=== PATIENT | male | born 1975 | race Caucasian/White ===

== ENCOUNTER 2024-04-29 08:00 | Emergency (ER) | payer OTHER, SELFPAY ==
--- OUTSIDE RECORDS SUMMARY | 2024-04-29 08:55 | XMS_ITS | Continuity of Care Document ---
Author Organization [facility] [facility] Address [address] [place] [address]- Care Team Providers Care Laborer [employer] Name Role Phone Miguel CROW, Jj Primary Care Physician [id number] Date(s): 04/07/24 - 04/14/24 [facility] [address] [address]- Encounter Diagnosis Constipation(Discharge Diagnosis) - 04/07/24 Attending Physician: Lauren Frank NP Encounter Type: Office Visit Allergies, Adverse Reactions, Alerts No Known Allergies Immunizations Given and Recorded Vaccine Date Status Refusal Reason tetanus/diphtheria/pertussis, acel(Tdap) 1 11/11/23 Given SARS-CoV-2(COVID-19)mRNA-LNP vac(lip534) 01/01/23 Recorded influenza virus vaccine, inactivated 12/28/22 Shawn rded influenza virus vaccine, inactivated 01/22/22 Shawn rded influenza virus vaccine, inactivated 01/12/19 Shawn rded SARS-CoV-2 (COVID-19) mRNA-1273 vaccine 04/13/20 R ecorded SARS-CoV-2 (COVID-19) mRNA-1273 vaccine 03/16/20 R ecorded 1Result Comment: [facility] [id number] Medications levETIRAcetam 1000 mg oral tablet 1 tablet = 1,000 mg, By Mouth, 2 times a day, # 60 tablet, 9 Refills, Maintenance, 01/06/24 4:03:00PM EDT, Tablet, [facility]/pharmacy #[id number], Partial fill upon patient request if the prescription is for a schedule II opioid drug., 158, cm, 01/06/24 15:37:00 EDT, Height, 75, kg, 01/06/24 15:37:00 EDT, DryWeight Start Date: 01/06/24 Stop Date: 11/01/24 Status: Ordered Quantity: 60.0 Unit: tablet Repeat number: 10 metoprolol 50 mg oral tablet, extended release 50 mg, 1, tablet, By Mouth, Daily, # 90 tablet, Refills 3, Tot. Refills 3, Maintenance, 12/24/23 12:32:00 PM EDT, Route to Pharmacy Electronically, [facility]/pharmacy #[id number], Partial fill upon patient request if the prescription is for a schedule II opioid drug., 158, cm, 11/11/23 13:36:00 EDT, Height, 79.5, kg, 09/19/23 0:16:00 EDT, Dry Weight Start Date: 12/24/23 Status: Ordered Quantity: 90.0 Unit: tablet Repeat number: 4 rosuvastatin 10 mg oral tablet 1 tablet = 10 mg, By Mouth, Daily, # 90 tablet, 1 Refills, Maintenance, 11/14/23 9:10:00 AM EDT, Tablet, [facility]/pharmacy #[id number], Partial fill upon patient request if the prescription is for a schedule II opioid drug., 158, cm, 11/11/23 13:36:00 EDT, Height, 79.5, kg, 09/19/23 0:16:00 EDT, Dry Weight Start Date: 11/14/23 Status: Ordered Quantity: 90.0 Unit: tablet Repeat number: 2 Problem List Condition Confirmation Course Effective Dates Status H ealth Status Informant Congenital obstructive hydrocephalus Confirmed Active Hypertension Confirmed Active Seizure disorder Confirmed Active Diagnosis Diagnosis Type Effective Dates Health Status inical Service Informant Constipation Discharge Diagnosis 04/07/24 Vital Signs Most recent to oldest [Reference Range]: 1 Height 158 cm (04/07/24 2:34 PM) Weight 72.5 kg (04/07/24 2:34 PM) Oxygen Saturation [94-100 %] 98 % (04/07/24 2:34 PM) Pulse Rate [55-90 bpm] 65 bpm (04/07/24 2:34 PM) Body Mass Index [18.5-24.99 kg/m2] 29.04 kg/m2 *H* (04/07/24 2:34 PM) Blood Pressure [90-138/55-84 mm Hg] 120/ 70mm Hg (04/07/24 2:34 PM) Respiratory Rate [16-30 br/min] 15 br/mi n *L* (04/07/24 2:34 PM) Mode of Delivery (Oxygen) Room air (04/07/24 2:34 PM) Blood pressure sites Arm, right (04/07/24 2:34 PM) Dry Weight 72.5 kg (04/07/24 2:34 PM) Weight Obtained Via Standing scale (04/07/24 2:34 PM) Dry Weight Obtained Via Standing scale (04/07/24 2:34 PM) Social History Social History Type Response Smoking Status Never (less than 100 in lifetime) entered on: 04/18/21 Sex Sex Representation Male (finding) Note * Shanika Valles: PERFORM Event Display: Patient Education/Instruction Authored Date: [id number] Ambulatory Adult [facility] [address] [address] Name: RUSTAM STARKS : 1975?? Visit: 04/07/2024 14:15?? Ambulatory Visit Instructions ?? Your Care Team Primary Care Provider Jj Rivera NP? This Visit Provider Lauren Frank NP Your Diagnosis Constipation Vitals Signs Pulse Rate: 65 bpm Height: 158 cm Respiratory Rate:??15 br/min??Low Weight: 72.5 kg Systolic Blood Pressure: 120 mm Hg Body Mass Index:??29.04 kg/m2??High Diastolic Blood Pressure: 70 mm Hg Body surface area: 1.78 Oxygen Saturation: 98 % ?? Medications The list below reflects the information in our records and provided by you today along with any changes made during this visit. Please continue your medications until treatment is completed or stopped by your provider. If this is different from the information you have or there are other questions,please contact the prescribing provider. What How Much When Instructions Unchanged levETIRAcetam (levETIRAcetam 1000 mg oral tablet) 1 tab(s) Oral Twice a day Duration: 30 Days Unchanged Metoprolol (metoprolol 50 mg oral tablet, extended release) 1 tab(s) Oral Daily Unchanged Rosuvastatin (rosuvastatin 10 mg oral tablet) 1 tab(s) Oral Daily Medications and Immunizations Administered Medications Given During Visit No medications given during this visit.?? Allergies (NKA means No Known Allergies) NKA Education Materials Below is the list of Educational Leaflet Providered with your Visit summary. WebMD Ignite Patient Education - Treating Constipation?? WebMD Ignite Patient Education - Constipation (Adult)?? Common Emergency Awareness Tips IS IT A STROKE? Act FAST and Check for these signs: FACE Does the face look uneven? ARM Does one arm drift down? SPEECH Does their speech sound strange? TIME Call at any sign of stroke ?? Heart Attack Signs Chest discomfort: Most heart attacks involve discomfort in the center of the chest and lasts more than a few minutes, or goes away and comes back. It can feel like uncomfortable pressure, squeezing, fullness or pain. Discomfort in upper body: Symptoms can include pain or discomfort in one or both arms, back, neck, jaw or stomach. Shortness of breath: With or without discomfort. Other signs: Breaking out in a cold sweat, nausea, or lightheaded. Remember, MINUTES DO MATTER. If you experience any of these heart attack warning signs, call to get immediate medical attention! ?? Smoking can increase your chances of developing chronic health problems and can cause harmful effects to other family members in your house. If you smoke, you are strongly encouraged to quit. Please call [employer] Link at [phone] or 1-689-237[employer] (0788) or log in to [email or web address] for referrals to smoking cessation programs. ?? The National Suicide Prevention Hotline is available 30/09 if you or someone you know needs to find a reason to keep living. By calling 1-484-941-[employer] (6992) you'll be connected to a skilled, trained counselor at a crisis center in your area. [facility] Break [employer] Portal You can view and manage your care through the patient portal or by using a health care milagros of your choosing. [employer] is a website that allows you to securely view your medical information including your hospital discharge summary, office visit summaries, medications and follow-up visits. You can also request appointments, renew medications, and request access to your medical information using a health care milagros of your choosing, or just ask a question. You can enroll at [email or web address] or register during your next office visit. [facility], in keeping with [facility] guidance, no longer requires face masks for staff, patientsor visitors in most situations. Similiar to time spent indoors at other locations, there is the chance that you were exposed to repiratory viruses during your time with us (such as flu or COVID-19). If you develop symptoms concerning for a viral respiratory infection, please seek testing (and treatment if indicated) from your medical provider or home test kit. ?? Disclaimer: The information provided is of a general nature and is intended to be used in conjunction with the recommendations and advice of your health care practitioner. Every effort has been made to ensure that the information provided is accurate and complete at the time it is provided to you however, as your needs change, or, as new information becomes available, different or additional instructions may be required. ?? If you have questions, please consult with your primary care provider or pharmacist, as appropriate. This information is not intended to serve as substitution for assessment and evaluation by a qualified health care provider. If you do not have a primary care provider, you may find a [facility] provider by calling [facility] [employer] Link at [phone]. * Shanika Valles: PERFORM Event Display: Patient Education/Instruction Authored Date: [id number] Ambulatory Adult Visit Summary [facility] [place] Adult Med [facility] [place] Adult Medicine [address] [address] Name: RUSTAM STARKS : 1975?? Visit: 04/07/2024 14:15?? Ambulatory Visit Instructions ?? Your Care Team Primary Care Provider Jj Rivera NP? This Visit Provider Monika CROW , Lauren oLpez. Your Diagnosis Constipation Vitals Signs Pulse Rate: 65 bpm Height: 158 cm Respiratory Rate:??15 br/min??Low Weight: 72.5 kg Systolic Blood Pressure: 120 mm Hg Body Mass Index:??29.04 kg/m2??High Diastolic Blood Pressure: 70 mm Hg Body surface area: 1.78 Oxygen Saturation: 98 % ?? Medications The list below reflects the information in our records and provided by you today along with any changes made during this visit. Please continue your medications until treatment is completed or stopped by your provider. If this is different from the information you have or there are other questions,please contact the prescribing provider. What How Much When Instructions Unchanged levETIRAcetam (levETIRAcetam 1000 mg oral tablet) 1 tab(s) Oral Twice a day Duration: 30 Days Unchanged Metoprolol (metoprolol 50 mg oral tablet, extended release) 1 tab(s) Oral Daily Unchanged Rosuvastatin (rosuvastatin 10 mg oral tablet) 1 tab(s) Oral Daily Medications and Immunizations Administered Medications Given During Visit No medications given during this visit.?? Allergies (NKA means No Known Allergies) NKA Education Materials Below is the list of Educational Leaflet Providered with your Visit summary. WebMD Ignite Patient Education - Treating Constipation?? WebMD Ignite Patient Education - Constipation (Adult)?? Common Emergency Awareness Tips IS IT A STROKE? Act FAST and Check for these signs: FACE Does the face look uneven? ARM Does one arm drift down? SPEECH Does their speech sound strange? TIME Call at any sign of stroke ?? Heart Attack Signs Chest discomfort: Most heart attacks involve discomfort in the center of the chest and lasts more than a few minutes, or goes away and comes back. It can feel like uncomfortable pressure, squeezing, fullness or pain. Discomfort in upper body: Symptoms can include pain or discomfort in one or both arms, back, neck, jaw or stomach. Shortness of breath: With or without discomfort. Other signs: Breaking out in a cold sweat, nausea, or lightheaded. Remember, MINUTES DO MATTER. If you experience any of these heart attack warning signs, call to get immediate medical attention! ?? Smoking can increase your chances of developing chronic health problems and can cause harmful effects to other family members in your house. If you smoke, you are strongly encouraged to quit. Please call [employer] Link at [phone] or 1-212-879[employer] (2682) or log in to [email or web address] for referrals to smoking cessation programs. ?? The National Suicide Prevention Hotline is available 30/09 if you or someone you know needs to find a reason to keep living. By calling 1-253-204-[employer] (0711) you'll be connected to a skilled, trained counselor at a crisis center in your area. [facility] Break [employer] Portal You can view and manage your care through the patient portal or by using a health care milagros of your choosing. [employer] is a website that allows you to securely view your medical information including your hospital discharge summary, office visit summaries, medications and follow-up visits. You can also request appointments, renew medications, and request access to your medical information using a health care milagros of your choosing, or just ask a question. You can enroll at [email or web address] or register during your next office visit. [facility], in keeping with [facility] guidance, no longer requires face masks for staff, patientsor visitors in most situations. Similiar to time spent indoors at other locations, there is the chance that you were exposed to repiratory viruses during your time with us (such as flu or COVID-19). If you develop symptoms concerning for a viral respiratory infection, please seek testing (and treatment if indicated) from your medical provider or home test kit. ?? Disclaimer: The information provided is of a general nature and is intended to be used in conjunction with the recommendations and advice of your health care practitioner. Every effort has been made to ensure that the information provided is accurate and complete at the time it is provided to you however, as your needs change, or, as new information becomes available, different or additional instructions may be required. ?? If you have questions, please consult with your primary care provider or pharmacist, as appropriate. This information is not intended to serve as substitution for assessment and evaluation by a qualified health care provider. If you do not have a primary care provider, you may find a [facility] provider by calling [employer] [facility] at [phone]. * Monika CROW, Lauren M: PERFORM Event Display: Patient Education Leaflets Authored Date: Treating Constipation ?? 49210 Treating Constipation Constipation is a common and often uncomfortable problem. Constipation means you have bowel movements??fewer than 3 times per week. Or that you strain to pass hard, dry stool. It can last a short time. Or it can be a problem that never seems to go away. The good news is that it can often be treatedand controlled. Eat more fiber One of the best ways to help treat constipation is to increase your fiber intake. You can do this either through diet or by using fiber supplements. Fiber (in whole grains, fruits, and vegetables) adds bulk and absorbs water to soften the stool. This helps the stool pass through the colon more easily. When you increase your fiber intake, do it slowly to prevent side effects such as bloating. Alsoincrease the amount of water that you drink. Eating more of these foods can add fiber to your diet:??? High-fiber cereals ??? Whole grains, bran, and brown rice ??? Vegetables such as carrots, broccoli, and greens ??? Fresh fruits (especially apples, pears, and dried fruits such as raisins and apricots) ??? Nuts and legumes (especially beans such as lentils, kidney beans, and corbin beans) ?? Set a good routine ? Go to the bathroom when you feel you need to. Don???t ignore the urge to have a bowel movement.??? Set aside time after meals to go to the bathroom. ? Get physically active Exercise helps improve the working of your colon which helps ease constipation. Try to get some physical??activity every day. If you haven???t been active for a while, talk with your??healthcare provider??before starting again. ?? Consider other choices ??? Laxatives. Your healthcare provider may suggest an kibu-duy-yqggclt product to help ease your constipation. They may suggest using bulk-forming products or laxatives. Laxatives are common and safe if used as directed. Follow directions carefully when using them. See your provider for new constipation or long-term constipation. This is??to rule out other causes such as certain medicines or other health conditions. See your provider if you have rectal bleeding. ??? Pelvic floor training. Biofeedback and pelvic physical therapy (PT) may be helpful. They can help if youhave pelvic floor problems that may be lead to constipation. For biofeedback, the healthcare provider puts sensors in and outside your anus. This helps you learn how to find and relax the muscles during a bowel movement so you don't get constipated. With PT, you'll learn exercises to help have normal bowel movements and prevent constipation. You may be taught different positions to use to keep from straining during a bowel movement. ?? Last Reviewed Date: 2021 ?? [employer]. All rights reserved. This information is not intended as a substitute for professional medical care. Always follow your healthcare professional's instructions. ?? * Monika CROW, Lauren M: PERFORM Event Display: Patient Education Leaflets Authored Date: [id number] Constipation (Adult) ?? [id number] Constipation (Adult) Constipation means that you have bowel movements that are less frequent than usual. Stools often become very hard and difficult to pass. Constipation is very common. At some point in life, it affects almost everyone. Since everyone's bowel habits are different, what is constipation to one person may not be to another. Your healthcare provider may do tests to diagnose constipation. It depends on what??they??find when evaluating you. Symptoms of constipation include: ??? Abdominal pain ??? Bloating ??? Vomiting ??? Painful bowel movements ??? Itching, swelling, bleeding, or pain around the anus Causes Constipation can have many causes. These include: ??? Diet low in fiber ??? Too much dairy ??? Not drinking enough liquids ??? Lack of exercise or physical activity (especially true for older adults)??? Changes in lifestyle or daily routine, including , aging, work, and travel ??? Frequent use or misuse of laxatives ??? Ignoring the urge to have a bowel movement or delaying it until later ??? Medicines, such as certain prescription pain medicines, iron supplements, antacids, certain antidepressants, and calcium supplements ??? Diseases like irritable bowel syndrome, bowel obstructions, stroke, diabetes, thyroid disease, Parkinson disease, hemorrhoids, and colon cancer ?? Complications Possible complications of constipation can include: ??? Hemorrhoids ??? Rectal bleeding from hemorrhoids or anal fissures??(skin tears) ??? Hernias ??? Chronic constipation ??? Fecal impaction, a severe form of constipation in which a large amount of hard stool is in your rectum that you can't pass??? Bowel obstruction or perforation ?? Home care All treatment should be done after talking with your healthcare provider. This is especially true if you have another medical problem, are taking prescription medicines, or are an older adult. Treatment most often involves lifestyle changes. You may also need medicines. Your healthcare provider will tell you which will work best for you. Follow the advice below to help avoid this problem in the future. ?? Lifestyle changes These lifestyle changes can help prevent constipation: ??? Diet. Eat a high- fiber diet, with fresh fruit and vegetables, and reduce dairy intake, meats, and processed foods ??? Fluids. It's importantto get enough fluids each day. Drink plenty of water when you eat more fiber. If you are on diet that limits the amount of fluid you can have, talk about this with your healthcare provider. ??? Regular exercise. Check with your healthcare provider first. ?? Medicines Take any medicines as directed. Some laxatives are safe to use only every now and then. Others can be taken on a regular basis. While laxatives don't cause bowel dependence, they are treating the symptoms. So your constipation may return if you don't make other changes. Talk with your healthcare provider or pharmacist if you have questions. Prescription pain medicines can cause constipation. If you are taking this kind of medicine, ask your healthcare provider if you should also take a stool softener. Medicines you may take to treat constipation include: ??? Fiber supplements ??? Stool softeners ???Laxatives ??? Enemas ??? Rectal suppositories ?? Follow-up care Follow up with your healthcare provider if symptoms don't get better in the next few days. You may need to have more tests or see a specialist. ?? Call 911 Call 911 if any of these occur: ??? Trouble breathing ??? Stiff, rigid abdomen that is severely painful to touch ??? Large amount of blood in the stool ??? Confusion ??? Fainting or loss of consciousness ??? Rapid heart rate ??? Chest pain ?? When to seek medical advice Call your healthcare provider right away if any of these occur: ??? Fever of 100.4??F (38??C) or higher, or as directed by your healthcare provider ??? Failure to resume normal bowel movements ??? Pain in your abdomen or back gets worse ??? Nausea or vomiting ??? Swelling in your abdomen ??? Small amount of blood in the stool ??? Black, tarry stool ??? Involuntary weight loss ??? Weakness ?? Last Reviewed Date: 2021 ?? 3162-4991 [employer]. All rights reserved. This information is not intended as a substitute for professional medical care. Always follow your healthcare professional's instructions. ?? Patient Care team information Care Team Personnel Name: Jj Rivera NP Position: [facility] PCO Associate Professional Member Role: PCP Address: [address] [place] [address] Telecom: Care Team Related Persons Name: SHALONDA BARCENAS Name: JOHN CROOKS Name: RUSTAM STARKS Name: GINETTE STARKS Insurance Providers Guarantor name: RACHEL Health Plan Information #: 3 Payer[facility] Member Number: [id number] Policy Number: NA Group Number: RACHEL Health Plan Information #: 1 Payer: [employer] Member Number: [id number] Policy Number: NA Group Number: [id number] Health Plan Information #: 2 Payer: [employer] Member Number: [id number] Policy Number: RACHEL Group Number: [id number]
--- OUTSIDE RECORDS SUMMARY | 2024-04-29 08:55 | XMS_ITS | Continuity of Care Document ---
Author Organization [facility] al Address [address] [place] [address]- Care Team Providers Care Geophysics Professor Name Role Phone Miguel CROW, Jj Primary Care Physician Encounter [facility] Date(s): 04/26/24 - 04/26/[address] [address]- Discharge Disposition: A-D/C Home Attending Physician: Nicko Alegria MD Admitting Physician: Nicko Alegria MD Referring Physician: Not on Staff, Referring MD Encounter Type: Disch ES Allergies, Adverse Reactions, Alerts No Known Allergies Immunizations Given and Recorded Vaccine Date Status Refusal Reason tetanus/diphtheria/pertussis, acel(Tdap) 1 11/11/23 Given SARS-CoV-2(COVID-19)mRNA-LNP vac([id number]) 01/01/23 Recorded influenza virus vaccine, inactivated 12/28/22 Shawn rded influenza virus vaccine, inactivated 01/22/22 Shwan rded influenza virus vaccine, inactivated 01/12/19 Shawn rded SARS-CoV-2 (COVID-19) mRNA-1273 vaccine 04/13/20 R ecorded SARS-CoV-2 (COVID-19) mRNA-1273 vaccine 03/16/20 R ecorded 1Result Comment: [facility] [id number] Medications Dulcolax 5 mg oral enteric coated tablet 2 tablet = 10 mg, By Mouth, Daily, PRN for constipation, for 10 days, # 20 tablet, 0 Refills, Acute05/06/24 5:13:00 PM EST, 04/26/24 5:13:00 PM EST, EC Tablet, [id number], Partial fill upon patient request if the prescription is for a schedule II opioid drug., 158, cm, 04/26/24 14:19:00 EST, Height, 73.7, kg, 04/26/24 14:19:00 EST, Dry Weight Start Date: 04/26/24 Stop Date: 05/06/24 Status: Ordered Quantity: 20.0 Unit: tablet Repeat number: 1 lactulose 10 gm/15 ml oral syrup 15 mL = 10 Gm, By Mouth, Daily, PRN as needed for constipation, for 30 days, # 450 mL, 0 Refills, Acute 05/26/24 5:12:00 PM EDT, 04/26/24 5:12:00 PM EST, Syrup, [id number], Partial fill upon patient request if the prescription is for a schedule II opioid drug., 15 mL By Mouth Daily,x30 days,PRN:as needed for constipation, 158, cm, 04/26/24 14:19:00 EST, Height, 73.7, kg, 04/26/24 14:19:00 EST, Dry Weight Start Date: 04/26/24 Stop Date: 05/26/24 Status: Ordered Quantity: 450.0 Unit: mL Repeat number: 1 levETIRAcetam 1000 mg oral tablet 1 tablet = 1,000 mg, By Mouth, 2 times a day, # 60 tablet, 9 Refills, Maintenance, 01/06/24 4:03:00PM EDT, Tablet, [id number], Partial fill upon patient request if [...] 12:32:00 PM EDT, Route to Pharmacy Electronically, [id number], Partial fill upon patient request if [...] Refills, Maintenance, 11/14/23 9:10:00 AM EDT, Tablet, [id number], Partial fill upon patient request if [...] Hypertension Confirmed Active Seizure disorder Confirmed Active Results Radiology Reports * Exam Date Time Procedure Performing Provider Status 04/26/24 4:31 PM Abdomen Series W/ PA Chest Bradford Cagle; Auth (Verified) Notes: (Abdomen Series W/ PA Chest) Reason For Exam: Distention RESULT: Abdomen Series W/ PA Chest Abdomen Series W/ PA Chest INDICATION: Persistent mid abdominal pain. Clinical Question(s): Obstruction; Free Air. COMPARISON: None. FINDINGS: PA chest x-ray, 2 AP views of the abdomen, one labeled upright the other supine. LINES AND TUBES: Partially included PLATE SENSITIZER shunt catheter remains intact. LUNGS AND PLEURA: Clear lungs. Normal vascularity. No pleural effusion. No pneumothorax. HEART, MEDIASTINUM AND RUDY: Normal. BOWEL GAS PATTERN AND SOFT TISSUES: Normal bowel gas pattern. Colon is stool containing throughout. No pneumoperitoneum. No abnormal calcifications. BONES: Normal bones. IMPRESSION: No evidence of an acute abnormality. WSN: [id number] Ordering Physician: Nicko Alegria Dictated By: Marek Bailey MD Dictated Date/Time: 04/26/24 4:50 pm Reviewed By: Marek Bailey MD Signed By: Marek Bailey MD Signed Date/Time: 04/26/24 4:50 pm Transcribed By: MAYANK Transcribed Date/Time: 04/26/24 4:47 pm Vital Signs Most recent to oldest [Reference Range]: 1 2 3 Height 158 cm (04/26/24 5:40 PM) 158 cm (04/26/24 1:40 PM) Weight 73.7 kg (04/26/24 1:40 PM) Oxygen Saturation [94-100 %] 96 % (04/26/24 5:40 PM) 97 % (04/26/24 1:40 PM) 98 % (04/26/24 1:39 PM) Pulse Rate [55-90 bpm] 58 bpm (04/26/24 5:40 PM) 54 bpm *L* (04/26/24 1:40 PM) 76 bpm (04/26/24 1:39 PM) Blood Pressure [90-138/55-84 mm Hg] 136/100mm Hg (04/26/24 5:40 PM) 131/64mm Hg (04/26/24 1:40 PM) Respiratory Rate [16-30 br/min] 18 br/min (04/26/24 5:40 PM) 18 br/min (04/26/24 1:40 PM) Temperature [96.8-100.4 DegF] 97.4 DegF (04/26/24 1:40 PM) Mode of Delivery (Oxygen) Room air (04/26/24 5:40 PM) Room air (04/26/24 1:40 PM) Room air (04/26/24 1:39 PM) Blood pressure sites Arm, right (04/26/24 5:40 PM) Temperature Route Tympanic (04/26/24 1:40 PM) Dry Weight 73.7 kg (04/26/24 1:40 PM) Weight Obtained Via Standing scale (04/26/24 1:40 PM) Social History Social History Type Response Smoking Status Never (less than 100 in lifetime) entered on: 04/18/21 Sex Sex Representation Male (finding) Note * Airam PETERS, Nicko Boykin: PERFORM Event Display: Patient Education Leaflets Authored Date: [id number] Constipation (Adult) ?? [id number] Constipation (Adult) Constipation means that you have less frequent bowel movements (generally fewer than 3 bowel movements a week) than usual. Stools often become very hard and difficult to pass. Constipation is very common. At some point in life, it affects almost everyone. Since everyone's bowel habits are different, what is constipation to 1 person may not be to another. Your healthcare provider may do tests to diagnose constipation. It depends on what??they??find when evaluating you. Symptoms of constipation include: ??? Abdominal pain ??? Bloating ??? Straining during bowel movements ??? Hard, lumpy stools ??? Painful bowel movements ??? Itching, swelling, bleeding, or pain around the anus ??? A feeling that youhave not emptied your bowels completely Causes Constipation can have many causes. These include: ??? Diet low in fiber ??? Not drinking enough liquids ??? Lack of exercise or physical activity (especially true for older adults) ??? Changes in lifestyle or daily routine, including , aging, work, and travel ??? Frequent use or misuse of laxatives ??? Ignoring the urge to have a bowel movement or delaying it until later ??? Medicines, such as certain prescription pain medicines, iron supplements, antacids, certain antidepressants, andcalcium supplements ??? Too much dairy ??? Conditions or diseases like irritable bowel syndrome, bowel obstructions, stroke, diabetes, thyroid disease, Parkinson disease, hemorrhoids, and colon cancer ?? Complications Possible complications of constipation can include: ??? Hemorrhoids ??? Rectal bleeding from hemorrhoids or anal fissures??(skin tears around the anus) ??? Hernias ??? Chronic constipation ??? Fecal impaction, a severe form of constipation in which a large amount of hard stool is in your rectum that you can't pass ??? Bowel obstruction or perforation ??? Rectal prolapse (a portion of rectum slipped out of the anal opening) ?? Home care All treatment should be done after talking with your healthcare provider. This is especially true if you have another medical problem, are taking prescription medicines, or are an older adult. Treatment most often involves lifestyle changes. You may also need medicines. Your healthcare provider will tell you which will work best for you. Follow the advice below to help prevent this problem in thefuture. ?? Lifestyle changes These lifestyle changes can help prevent constipation: ??? Diet. Eat a high- fiber diet, with fresh fruit and vegetables, and reduce dairy intake, meats, and processed foods ??? Fluids. It's importantto get enough fluids each day. Drink plenty of water when you eat more fiber. If you are on a diet that limits the amount of fluid you can have, talk about this with your healthcare provider. ??? Regular exercise. Check with your healthcare provider first. ?? Medicines Take any medicines as directed. Some laxatives are safe to use only now and then. Others can be taken regularly. While laxatives don't cause bowel dependence, they [...] is severely painful to touch ??? Large amounts of blood in the stool ??? Confusion ??? Fainting or loss of consciousness ??? Rapid heart rate ??? Chest pain ?? When to get medical advice Call your healthcare provider right away if any of these occur: ??? Fever of 100.4??F (38??C) or higher, or as directed by your healthcare provider ??? Failure to resume normal bowel movements ??? Pain in your abdomen or back gets worse ??? Nausea or vomiting ??? Swelling in your abdomen ??? Smallamount of blood in the stool ??? Black, tarry stool ??? Weight loss without trying ??? Weakness ?? Last Reviewed Date: 2024 ?? [id number] [employer]. All rights reserved. This information is not intended as a substitute for professional medical care. Always follow your healthcare professional's instructions. ?? Patient Care team information Care Team Personnel Name: Jj Rivera NP Position: [facility] Associate Professional Member Role: PCP Address: [address] [place] [id number]- Telecom: Care Team Related Persons Name: SHALONDA BARCENAS Name: JOHN CROOKS Name: RUSTAM STARKS Name: GINETTE STARKS Insurance Providers Guarantor name: NA Health Plan Information #: 1 Payer: [employer] P[employer] Member Number: [id number] Policy Number: NA Group Number: [id number] Health Plan Information #: 2 Payer: [employer] P[employer] Member Number: [id number] Policy Number: NA Group Number: NA
== END 2024-04-29 11:10 | disposition left against medical advice (07) ==
PROVIDERS: Emergency Provider Emergency Medicine
DX: R10.2 Pelvic and perineal pain (principal)